=== PATIENT | female | born 1980 | race Caucasian/White ===

== ENCOUNTER 2016-11-08 00:17 | Emergency (ER) | payer OTHER ==
[~2016-11-08] VITALS: Ht 162.6 cm; Wt 63.5 kg
[~2016-11-08 00:17] MED LIST: ALPR1T PO; CIPR500T78 PO; CPR500T PO; DCS100C PO; FRS325T PO; HYDR-229 PO; HYDR-3720 PO; HYDR118S10 PO; IBP800T PO; IBUP800T26 PO; METR500T PO; MULT-305 PO; NAPR-243 PO; NITR-65 PO; ONDA4TAB8 PO; OXYC-109 PO; OXYC-12 PO; OXYC-272 PO; OXYC-465 PO; OXYC1TAB12 PO; PREN1TAB19 PO; SPRINTEC PO; TAMS0.4C98 PO
[2016-11-08] MEDS ORDERED: ESTR1TAB24 (00:32)
[2016-11-08] MEDS ORDERED: HYDR-3816 (00:32)
[2016-11-08] MEDS ORDERED: LACTATED RINGERS 1,000 ML IV ONE (00:36)
[2016-11-08] MEDS ORDERED: KETOROLAC 30 MG/ML VIAL IVP STA (00:36)
[2016-11-08 00:43] LABS: BILIRUBIN,URINE NEGATIVE (NEGATIVE); KETONES,URINE NEGATIVE (NEGATIVE); LEUKOCYTE ESTERASE ,URINE NEGATIVE (NEGATIVE); NITRITE,URINE NEGATIVE (NEGATIVE); PH,URINE 8 (5-9); PROTEIN,URINE NEGATIVE (NEGATIVE); UROBILINOGEN,URINE NORMAL (NORMAL)
[2016-11-08 00:51] LABS: SQUAMOUS EPITHELIAL CELL,UR RARE /HPF; WBC,URINE RARE /HPF
[2016-11-08 00:51] LABS: BASOPHILS % (AUTO) 0 % (0-10); EOSINOPHILS # (AUTO) 0.1 10^3/uL (0.0-0.3); EOSINOPHILS % (AUTO) 1 % (0-10); LYMPHOCYTES # (AUTO) 1.8 X 10^3 (1.0-4.0); LYMPHOCYTES % (AUTO) 34 % (12-44); MEAN CORPUSCULAR HEMOGLOBIN 31 PG (25-34); MEAN CORPUSCULAR HGB CONC 34 G/DL (32-36); MEAN CORPUSCULAR VOLUME 91 FL (80-99); MEAN PLATELET VOLUME 10.3 FL (7.4-10.4); MONOCYTES # (AUTO) 0.5 X 10^3 (0.0-1.0); MONOCYTES % (AUTO) 9 % (0-12); NEUTROPHILS % (AUTO) 56 % (42-75); PLATELET COUNT 245 10^3/uL (130-400); RED BLOOD COUNT 4.34 10^6/uL (4.35-5.85); WHITE BLOOD COUNT 5.3 10^3/uL (4.3-11.0)
[2016-11-08 01:10] LABS: ALANINE AMINOTRANSFERASE 12 U/L (0-55); ALBUMIN 4.4 GM/DL (3.2-4.5); AMYLASE 54 U/L (25-125); ANION GAP 13 MMOL/L (5-14); ASPARTATE AMINO TRANSFERASE 15 U/L (5-34); BILIRUBIN,TOTAL 0.4 MG/DL (0.1-1.0); BLOOD UREA NITROGEN 12 MG/DL (7-18); BUN/CREATININE RATIO 16; CALCIUM 9.3 MG/DL (8.5-10.1); CARBON DIOXIDE 19 MMOL/L (21-32); CHLORIDE 109 MMOL/L (98-107); CREATININE SERUM 0.73 MG/DL (0.60-1.30); GFR ESTIMATED > 60; GLUCOSE 110 MG/DL (70-105); LIPASE 32 U/L (8-78); POTASSIUM 4.4 MMOL/L (3.6-5.0); SODIUM 141 MMOL/L (135-145); TOTAL PROTEIN 7.2 GM/DL (6.4-8.2)
[2016-11-08] MEDS ORDERED: ONDANSETRON 4 MG/2 ML (SDV) Z0FRAN IVP ONE (01:30)
[2016-11-08] MEDS ORDERED: ONDA4TAB8 PO (02:06)
[2016-11-08] MEDS ORDERED: KETO10TA PO (02:06)
--- NOTE | 2016-11-08 02:07 | ED Abdominal Pain ---
General Chief Complaint: Abdominal/GI Problems Stated Complaint: ABD PAIN,RT SIDE,CAN'T URINATE Nursing Triage Note: c/o L sided abdomen pain and unable to urinate Sepsis Screen: No Definite Risk Source of Information: Patient History of Present Illness Time Seen By Provider: 00:32 Initial Comments PT ARRIVES VIA POV-DROVE SELF HERE C/O DIFFUSE LEFT SIDED ABDOMINAL PAIN AND FLANK PAIN SINCE WAKING AT 0500 THIS AM STATES SHE HAS BEEN UNABLE TO URINATE OR HAVE A BM TODAY VOIDED A SMALL AMOUNT AT 1800. DENIES HEMATURIA NO NAUSEA/VOMITING NO FEVER NO PAIN ON URINATION PT STATES SHE HAS A HISTORY OF KIDNEY STONES AND THIS FEELS THE SAME. PT STATES SHE IS "ALLOWED 2 HYDROCODONE PILLS A DAY" , AND GOES ON AT LENGTH ABOUT HOW SHE "HARDLY EVER USES THEM AND NEVER TAKES MORE THAN PRESCRIBED" --PT HAS FILLED RX'S FOR HYDROCODONE 7.5/325 FOR #60 ON 10/30/16 AND 10/02/16, AND PRIOR TO THAT SHE WAS GETTING RX'S FOR HYDROCODONE 10/325 #60 FILLED EVERY SINGLE MONTH. ALSO TAKES XANAX ON REGULAR BASIS AND FILLED RX FOR #60 ON . PT HAS ALSO HAD MULTIPLE RX'S FOR PHENERGAN WITH CODEINE SYRUP FROM ANOTHER PROVIDER A FEW MONTHS AGO. PT STATES SHE TOOK 1 HYDROCODONE THIS AM AND 1 THIS EVENING WITHOUT RELIEF. Allergies and Home Medications Allergies Coded Allergies: cephalexin (Verified Allergy, Unknown, 07/31/06) metoclopramide (Verified Allergy, Unknown, MAKES FEEL OUT OF HEAD, 09/23/06 ) penicillin G (Verified Allergy, Unknown, 07/31/06) Home Medications Alprazolam 1 Mg Tablet, 1 TAB PO TID PRN for ANXIETY, (Reported) Estradiol 1 Mg Tablet, (Reported) Hydrocodone/Acetaminophen 1 Each Tablet, (Reported) Ketorolac Tromethamine 10 Mg Tablet, 10 MG PO Q6H, #15 Prescribed by: KRISTA BAH on 11/08/16 0206 Ondansetron 4 Mg Tab.rapdis, 4 MG PO Q4H, #10 Prescribed by: KRISTA BAH on 11/08/16 0206 Review of Systems Constitutional: no symptoms reported, No chills, No diaphoresis, No fever Respiratory: No Symptoms Reported Gastrointestinal: See HPI, Abdominal Pain, Constipated, Nausea, Denies Vomiting Genitourinary: See HPI, Flank Pain Musculoskeletal: see HPI, back pain Skin: no symptoms reported Psychiatric/Neurological: No Symptoms Reported Endocrine: No Symptoms Reported Hematologic/Lymphatic: No Symptoms Reported Past [id number]-[id number]-Zskeoe Hx Patient Social History Alcohol Use: Denies Use Recreational Drug Use: No Smoking Status: Current Everyday Smoker (1/2 PPD) Type Used: Cigarettes Recent Foreign Travel: No Contact w/Someone Who Travel: No Recent Infectious Disease Expo: No Physical Abuse: No Sexual Abuse: No Immunizations Up To Date Tetanus Booster (TDap): More than 5yrs PED Vaccines UTD: Yes Surgeries History of Surgeries: Yes (LYSIS ENDOMETRIOSIS, KIDNEY STONES/BASKET RETRIEVAL ) Surgeries: Appendectomy, Section, Gallbladder, Hysterectomy, Oophorectomy, Renal Respiratory History of Respiratory Disorde: No Cardiovascular History of Cardiac Disorders: No Neurological History of Neurological Disord: No Reproductive System : No Hx Reproductive Disorders: Yes (ENDOMETRIOSIS) Sexually Transmitted Disease: No HIV/AIDS: No Female Reproductive Disorders: Endometriosis, Ovarian Cyst DRY HEAT CABINET ATTENDANT History: Hysterectomy Genitourinary History of Genitourinary Disor: Yes Genitourinary Disorders: Kidney Stones Gastrointestinal History of Gastrointestinal Di: No Musculoskeletal History of Musculoskeletal Dis: Yes Musculoskeletal Disorders: Degenerate Disk Disease, Chronic Back Pain Endocrine History of Endocrine Disorders: No HEENT Loss of Vision: Denies Hearing Impairment: Denies Cancer History of Cancer: No Psychosocial History of Psychiatric Problem: Yes Behavioral Health Disorders: Anxiety Suicide Risk Score: 0 Integumentary History of Skin or Integumenta: No Blood Transfusions History of Blood Disorders: No Adverse Reaction to a Blood Tr: No Family Medical History Family Medial History: Alcoholism PATERNAL GRANDPA ( AGE 54 YR) Arthritis 19 FATHER 19 MOTHER G8 BROTHER (GOUT) MATERNAL GRANDMA Cardiovascular disease MATERNAL GRANDMA Completed stroke PATERNAL GRANDMA (70 YR) FHx: suicide G8 BROTHER (SUICIDE AGE 21 YR) Hypertension 19 FATHER 19 MOTHER Osteoporosis PATERNAL GRANDMA Parkinson's disease 19 FATHER PATERNAL GRANDMA No Family History of: AIDS Abdominal aortic aneurysm Martin's disease Alzheimer's disease Aphasia Asthma Cancer of mouth Cataracts Colon cancer Congenital disease Congenital heart disease Coronary thrombosis Cystic fibrosis Deafness or hearing loss Dementia Diabetes mellitus Drug abuse Dysphasia Fibrocystic disease of breast Gastroenteritis Glaucoma Headache disorder Hypercholesterolemia Infertility Kidney disease Myocardial infarction Neoplasm Not obtainable due to adoption Prostate cancer Psychosocial problem Respiratory disorder Seizure disorder Severe allergy Thyroid disease Tuberculosis Visual disorder Physical Exam Vital Signs Capillary Refill : Less Than 3 Seconds General Appearance: WD/WN, no apparent distress, other (FULL/HEAVY MAKEUP AND HEAVY PERFUME. 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, no motor/sensory deficits, alert, normal mood/affect, oriented x 3 Skin: normal color, warm/dry, No rash, tattoos/piercings (TATTOOS) Progress/Results/Core Measures Results/Orders Lab Results Laboratory Tests Test 11/08/16 00:36 11/08/16 00:40 Range/Units Urine Color YELLOW Urine Clarity SLIGHTLY CLOUDY Urine pH 8 5-9 Urine Specific [place] 1.010 L 1.016-1.022 Urine Protein NEGATIVE NEGATIVE Urine Glucose (UA) NEGATIVE NEGATIVE Urine Ketones NEGATIVE NEGATIVE Urine Nitrite NEGATIVE NEGATIVE Urine Bilirubin NEGATIVE NEGATIVE Urine Urobilinogen NORMAL NORMAL MG/DL Urine Leukocyte Esterase NEGATIVE NEGATIVE Urine RBC (Auto) 5+ H NEGATIVE Urine RBC 50-100 H /HPF Urine WBC RARE /HPF Urine Squamous Epithelial Cells RARE /HPF Urine Crystals NONE /LPF Urine Bacteria NEGATIVE /HPF Urine Casts NONE /LPF Urine Mucus NEGATIVE /LPF Urine Culture Indicated NO Urine Opiates Screen POSITIVE H NEGATIVE Urine Oxycodone Screen NEGATIVE NEGATIVE Urine Methadone Screen NEGATIVE NEGATIVE Urine Propoxyphene Screen NEGATIVE NEGATIVE Urine Barbiturates Screen NEGATIVE NEGATIVE Ur Tricyclic Antidepressants Screen NEGATIVE NEGATIVE Urine Phencyclidine Screen NEGATIVE NEGATIVE Urine Amphetamines Screen NEGATIVE NEGATIVE Urine Methamphetamines Screen NEGATIVE NEGATIVE Urine Benzodiazepines Screen POSITIVE H NEGATIVE Urine Cocaine Screen NEGATIVE NEGATIVE Urine Cannabinoids Screen NEGATIVE NEGATIVE White Blood Count 5.3 4.3-11.0 10^3/uL Red Blood Count 4.34 L 4.35-5.85 10^6/uL Hemoglobin 13.4 11.5-16.0 G/DL Hematocrit 39 35-52 % Mean Corpuscular Volume 91 80-99 FL Mean Corpuscular Hemoglobin 31 25-34 PG Mean Corpuscular Hemoglobin Concent 34 32-36 G/DL Red Cell Distribution Width 12.0 10.0-14.5 % Platelet Count 245 130-400 10^3/uL Mean Platelet Volume 10.3 7.4-10.4 FL Neutrophils (%) (Auto) 56 42-75 % Lymphocytes (%) (Auto) 34 12-44 % Monocytes (%) (Auto) 9 0-12 % Eosinophils (%) (Auto) 1 0-10 % Basophils (%) (Auto) 0 0-10 % Neutrophils # (Auto) 3.0 1.8-7.8 X 10^3 Lymphocytes # (Auto) 1.8 1.0-4.0 X 10^3 Monocytes # (Auto) 0.5 0.0-1.0 X 10^3 Eosinophils # (Auto) 0.1 0.0-0.3 10^3/uL Basophils # (Auto) 0.0 0.0-0.1 10^3/uL Sodium Level 141 135-145 MMOL/L Potassium Level 4.4 3.6-5.0 MMOL/L Chloride Level 109 H 98-107 MMOL/L Carbon Dioxide Level 19 L 21-32 MMOL/L Anion Gap 13 5-14 MMOL/L Blood Urea Nitrogen 12 7-18 MG/DL Creatinine 0.73 0.60-1.30 MG/DL Estimat Glomerular Filtration Rate > 60 BUN/Creatinine Ratio 16 Glucose Level 110 H 70-105 MG/DL Calcium Level 9.3 8.5-10.1 MG/DL Total Bilirubin 0.4 0.1-1.0 MG/DL Aspartate Amino Transf (AST/SGOT) 15 5-34 U/L Alanine Aminotransferase (ALT/SGPT) 12 0-55 U/L Alkaline Phosphatase 48 40-136 U/L Total Protein 7.2 6.4-8.2 GM/DL Albumin 4.4 3.2-4.5 GM/DL Amylase Level 54 25-125 U/L Lipase 32 8-78 U/L My Orders Orders - KRISTA BAH DO Ct Abd/Pelvis Wo(Kidney Stone) (11/08/16 00:36) Amylase (11/08/16 00:36) Cbc With Automated Diff (11/08/16 00:36) Comprehensive Metabolic Panel (11/08/16 00:36) Lipase (11/08/16 00:36) Ua Culture If Indicated (11/08/16 00:36) Saline Lock/Iv-Start (11/08/16 00:36) Abdomen/Kub 1view (11/08/16 00:36) Saline Lock/Iv-Start (11/08/16 00:36) Lactated Ringers (Lr 1000 Ml Iv Solution (11/08/16 00:36) Ketorolac Injection (Toradol Injection) (11/08/16 00:36) Drug Screen Stat (Urine) (11/08/16 00:56) Ondansetron Injection (Zofran Injectio (11/08/16 01:30) Iv Push Rn Clinical Ed (11/08/16 ) Medications Given in ED Vital Signs/I&O Blood Pressure Mean: 105 Progress Note : Progress Note PT REPEATEDLY WANTING "SOMETHING STRONGER" 0145--PT SLEEPING SOUNDLY, SNORING. STATES ZOFRAN MADE HER SLEEPY. Diagnostic Imaging Comments ACUTE ABDOMEN XRAYS--NO ACUTE PROCESS, PENDING RADIOLOGIST REVIEW CT ABDOMEN/PELVIS--NO ACUTE PROCESS, PER [facility] VIA FAX @ [id number] Reviewed: Reviewed by Me Departure Impression Impression: Primary Impression: Left sided abdominal pain Additional Impression: Microscopic hematuria Disposition: HOME, SELF-CARE Condition: Improved Departure-Patient Inst. Referrals: PIETRO TSAI MD (PCP/Family) Primary Care Physician Patient Instructions: Acute Abdomen (Belly Pain), Adult (DC), Blood in the Urine (Hematuria), Adult (DC) Add. Discharge Instructions: CONTINUE YOUR REGULAR MEDICATIONS PRESCRIBED FOLLOW UP WITH DR TSAI ON FRIDAY FOR FURTHER CARE RETURN TO ER IF WORSE All discharge instructions reviewed with patient and/or family. Voiced understanding. Scripts Ondansetron (Zofran Odt) 4 Mg Tab.rapdis 4 MG PO Q4H for Nausea/Vomiting, #10 TAB Prov: KRISTA BAH DO 11/08/16 Ketorolac Tromethamine (Ketorolac Tromethamine) 10 Mg Tablet 10 MG PO Q6H for Pain, #15 TAB Prov: NIURKA,KRISTA K DO 11/08/16 KRISTA BAH DO Nov 08, 2016 02:07
[2016-11-08 02:14] VITALS: BP 130/84
--- NOTE | 2016-11-08 07:23 | Diagnostic Imaging Report ---
INDICATION: Left abdominal flank pain. History of renal stones, hysterectomy, cholecystectomy and appendectomy Comparison study: Abdominal series from 01/12/15. Findings: Surgical clips are again seen in the region of the gallbladder fossa. The liver appears a little prominent in size but unchanged. Bowel gas pattern appears normal. Possible mild constipation. Small osteophyte is present in the right hip. IMPRESSION: 1. The liver again appears to be mildly prominent. 2. Questionable mild constipation. Dictated by: Dictated on workstation # [id number]
--- NOTE | 2016-11-08 07:32 | Diagnostic Imaging Report ---
PROCEDURE: CT urinary tract, rule out kidney stone. TECHNIQUE: Multiple contiguous axial images were obtained through the abdomen and pelvis without the use of intravenous contrast. INDICATION: Left flank and abdominal pain, previous kidney stones, hysterectomy, cholecystectomy, appendectomy. COMPARISON STUDY: CT scan dated 09/12/2015. FINDINGS: The lung bases are clear. Ill-defined low density area posteriorly in the right lobe liver on axial image 37, unchanged. The gallbladder is absent. The spleen, pancreas, adrenal glands and left kidney appear normal. There are is a 7.7 mm calcification in the lower pole of the left kidney anteriorly which was present previously. This has slightly increased. No hydronephrosis or inflammation is seen. No ascites, free air or abnormal adenopathy is present. The urinary bladder appears normal. No hernias are present. There are a few colonic diverticula without inflammation. IMPRESSION: 1. The calculi in the lower pole of the right kidney is slightly increased now measures 7.7 mm. No inflammation or hydronephrosis present. 2. Mild diverticulosis. 3. Stable ill-defined low density area in the right lobe of the liver. Dictated by: Dictated on workstation # [id number]
== END 2016-11-08 02:14 | disposition home or self-care (01) ==
LOC: EDUNIT# 00:17 → ER 00:20
DX: R10.84 Generalized abdominal pain (principal); R31.21 Asymptomatic microscopic hematuria; F41.9 Anxiety disorder, unspecified; F17.210 Nicotine dependence, cigarettes, uncomplicated; Z82.49 Family history of ischemic heart disease and other diseases of the circulatory system; Z87.442 Personal history of urinary calculi; Z90.710 Acquired absence of both cervix and uterus; Z90.49 Acquired absence of other specified parts of digestive tract; Z87.448 Personal history of other diseases of urinary system
CPT/HCPCS: 36415; 74000; 74176; 80053; 80306; 81000; 82150; 83690; 85025; 96361; 96374; 96375

== ENCOUNTER 2017-11-24 14:03 | Emergency (ER) | payer OTHER ==
[~2017-11-24] VITALS: Ht 165.1 cm; Wt 63.5 kg
[~2017-11-24 14:03] MED LIST changes: +ESTR1TAB24; +HYDR-34; +KETO10TA PO
--- OUTSIDE RECORDS SUMMARY | 2017-11-24 14:36 | XMS REPORT | Continuity of Care Document ---
Author Author [facility] Organization [facility] Address Unknown Phone Unavailable Allergies Active Description Code Type Severity Reaction Onset Reported/Identified Relationship to Patient Clinical Status Yes cephalexin [id number] Drug Allergy Unknown N/A 07/31/2006 Yes penicillin G [id number] Drug Allergy Unknown N/A 07/31/2006 Yes metoclopramide [id number] Drug Allergy Unknown MAKES FEEL OUT 09/23/2006 Medications There is no data. Problems Date Dx Coded Attending Type Code Diagnosis Diagnosed By 04/11/2011 Ot 614.2 SALPINGO- OOPHORITIS NOS 04/11/2011 Ot 617.1 OVARIAN ENDOMETRIOSIS 04/11/2011 Ot 620.0 FOLLICULAR CYST OF OVARY 04/11/2011 Ot 625.9 FEM GENITAL SYMPTOMS NOS 10/21/2011 Ot 592.0 CALCULUS OF KIDNEY 10/21/2011 Ot 599.0 URIN TRACT INFECTION NOS 10/21/2011 Ot 789.00 ABDOMINAL PAIN, UNSPECIFIED SITE 07/04/2012 TODD PHILIP, MICHELLE Ordoñez Ot 789.09 ABDOMINAL PAIN, OTHER SPECIFIED SITE 09/22/2012 LUIS MANUEL PHILIP, SUSANNA Rodríguez Ot 789.00 ABDOMINAL PAIN, UNSPECIFIED SITE 11/11/2012 LEANA PHILIP, KARMA Tarango Ot 617.9 ENDOMETRIOSIS NOS 08/25/2013 LUIS MANUEL PHILIP, SUSANNA Rodríguez Ot 592.0 CALCULUS OF KIDNEY 06/10/2014 Ot 796.5 06/28/2014 LEANA PHILIP, KARMA Tarango Ot 642.23 06/28/2014 KARMA DUEÑAS MD, Ot 642.23 06/28/2014 KARMA DUEÑAS MD Ot 642.23 06/28/2014 KARMA DUEÑAS MD Ot 642.23 06/30/2014 LEANA PHILIP, KARMA Tarango Ot 285.9 ANEMIA NOS 06/30/2014 KARMA DUEÑAS MD Ot 642.51 SEVERE PREECLAMP-DELIVER 06/30/2014 KARMA DUEÑAS MD Ot 644.21 EARLY ONSET DELIVERY-DEL 06/30/2014 KARMA DUEÑAS MD Ot 648.21 ANEMIA-DELIVERED 06/30/2014 KARMA DUEÑAS MD Ot 654.21 PREV DELIVRY W/ OR W/O MENT ANT 06/30/2014 KARMA DUEÑAS MD, Ot 657.01 POLYHYDRAMNIOS,DEL W OR W/O MENTN ANTEPA 06/30/2014 KARMA DUEÑAS MD Ot 663.31 CORD ENTANGLE NEC-DELIV 06/30/2014 KARMA DUEÑAS MD Ot V06.1 [id number], COMBINED [ 06/30/2014 KARMA DUEÑAS MD Ot V27.0 DELIVER-SINGLE LIVEBORN 07/04/2014 KARMA DUEÑAS MD Ot 796.5 07/29/2014 KARMA DUEÑAS MD Ot 642.43 07/29/2014 KARMA DUEÑAS MD Ot 796.5 08/06/2014 Ot 796.5 08/06/2014 KARMA DUEÑAS MD Ot 796.5 08/06/2014 KARMA DUEÑAS MD Ot 642.43 08/06/2014 KARMA DUEÑAS MD Ot 796.5 08/10/2014 Ot 620.2 08/10/2014 Ot 620.2 08/10/2014 Ot V72.63 08/10/2014 Ot V74.8 08/10/2014 Ot 722.52 08/10/2014 RAFAT PHILIP, JOAQUIN Hines Ot 599.70 08/10/2014 RAFAT PHILIP, JOAQUIN Hines Ot 617.9 08/10/2014 RAFAT PHILIP, JOAQUIN Hines Ot 625.9 08/10/2014 KARMA DUEÑAS MD Ot 285.9 08/10/2014 KARMA DUEÑAS MD Ot 617.9 08/10/2014 KARMA DUEÑAS MD Ot 625.9 08/10/2014 SINGH DUEÑAS MDNIS G Ot V72.63 08/10/2014 LEANA PHILIP, KARMA Tarango Ot V74.8 08/10/2014 Ot 796.5 08/10/2014 LEANA PHILIP, KARMA Tarango Ot 796.5 08/10/2014 LEANA PHILIP, KARMA Tarango Ot 642.23 08/10/2014 LEANA PHILIP, KARMA Tarango Ot 642.43 08/10/2014 LEANA PHILIP, KARMA Tarango Ot 796.5 08/10/2014 LEANA PHILIP, KARMA Tarango Ot 642.63 08/10/2014 LEANA PHILIP, KARMA Tarango Ot 285.9 08/10/2014 LEANA PHILIP, KARMA Tarango Ot 617.9 08/10/2014 LEANA PHILIP, KARMA Tarango Ot V72.84 08/11/2014 LEANA PHILIP, KARMA Tarango Ot 614.6 FEM PELVIC PERITON ADH-POST-OP/INF 08/11/2014 LEANA PHILIP, KARMA Tarango Ot 617.9 08/11/2014 LEANA PHILIP, KARMA Tarango Ot 620.2 OVARIAN CYST NEC/NOS 08/17/2014 LEANA PHILIP, KARMA Tarango Ot 642.23 08/24/2014 LEANA PHILIP, KARMA Tarango Ot 642.63 01/12/2015 KRISTA BAH DO Ot F17.210 NICOTINE DEPENDENCE, CIGARETTES, UNCOMPL 01/12/2015 KRISTA BAH DO Ot K76.9 LIVER DISEASE, UNSPECIFIED 01/12/2015 KRISTA BAH DO Ot N20.0 CALCULUS OF KIDNEY 01/12/2015 KRISTA BAH DO Ot R10.30 LOWER ABDOMINAL PAIN, UNSPECIFIED 01/12/2015 KRISTA BAH DO Ot R31.2 OTHER MICROSCOPIC HEMATURIA 01/12/2015 Ot 620.2 01/12/2015 Ot 620.2 01/12/2015 Ot V72.63 01/12/2015 Ot V74.8 01/12/2015 Ot 722.52 01/12/2015 RAFAT PHILIP, JOAQUIN Hines Ot 599.70 01/12/2015 RAFAT PHILIP, JOAQUIN Hines Ot 617.9 01/12/2015 RAFAT PHILIP, JOAQUIN Hines Ot 625.9 01/12/2015 LEANA PHILIP, KARMA Tarango Ot 285.9 01/12/2015 LEANA PHILIP, KARMA Tarango Ot 617.9 01/12/2015 LEANA PHILIP, KARMA Tarango Ot 625.9 01/12/2015 LEANA PHILIP, KARMA Tarango Ot V72.63 01/12/2015 LEANA PHILIP, KARMA Tarango Ot V74.8 01/12/2015 Ot 796.5 01/12/2015 LEANA MD, KARMA Tarango Ot 796.5 01/12/2015 LEANA PHILIP, KARMA Tarango Ot 642.23 01/12/2015 LEANA PHILIP, KARMA Tarango Ot 642.43 01/12/2015 LEANA PHILIP, KARMA Tarango Ot 796.5 01/12/2015 LEANA PHILIP, KARMA Tarango Ot 642.63 01/12/2015 LEANA PHILIP, KARMA Tarango Ot 285.9 01/12/2015 LEANA MD, KARMA Tarango Ot 617.9 01/12/2015 LEANA PHILIP, KARMA Tarango Ot V72.84 02/07/2015 Ot 620.2 02/07/2015 Ot 620.2 02/07/2015 Ot V72.63 02/07/2015 Ot V74.8 02/07/2015 Ot 722.52 02/07/2015 RAFAT PHILIP, JOAQUIN Hines Ot 599.70 02/07/2015 RAFAT PHILIP, JOAQUIN Hines Ot 617.9 02/07/2015 RAFAT PHILIP, JOAQUIN Hines Ot 625.9 02/07/2015 LEANA PHILIP, KARMA Tarango Ot 285.9 02/07/2015 LEANA PHILIP, KARMA Tarango Ot 617.9 02/07/2015 LEANA PHILIP, KARMA Tarango Ot 625.9 02/07/2015 LEANA PHILIP, KARMA Tarango Ot V72.63 02/07/2015 LEANA PHILIP, KARMA Tarango Ot V74.8 02/07/2015 Ot 796.5 02/07/2015 LEANA PHILIP, KARMA Tarango Ot 796.5 02/07/2015 LEANA PHILIP, KARMA Tarango Ot 642.23 02/07/2015 LEANA PHILIP, KARMA Tarango Ot 642.43 02/07/2015 LEANA PHILIP, KARMA G Ot 796.5 02/07/2015 LEANA PHILIP, KARMA Tarango Ot 642.63 02/07/2015 LEANA PHILIP, KARMA G Ot 285.9 02/07/2015 LEANA PHILIP, KARMA G Ot 617.9 02/07/2015 LEANA MD, KARMA Tarango Ot V72.84 02/07/2015 RAFAT PHILIP, [facility] Ot R16.0 02/23/2015 RAFAT PHILIP, [facility] Ot R16.0 03/20/2015 RAFAT PHILIP, [facility] Ot R16.0 03/20/2015 RAFAT PHILIP, [facility] Ot R16.0 04/04/2015 RAFAT PHILIP, [facility] Ot R16.0 04/07/2015 Ot 620.2 04/07/2015 Ot 620.2 04/07/2015 Ot V72.63 04/07/2015 Ot V74.8 04/07/2015 Ot 722.52 04/07/2015 RAFAT PHILIP, [facility] Ot 599.70 04/07/2015 RAFAT PHILIP, [facility] Ot 617.9 04/07/2015 RAFAT PHILIP, [facility] Ot 625.9 04/07/2015 LEANA PHILIP, KARMA G Ot 285.9 04/07/2015 LEANA PHILIP, KARMA G Ot 617.9 04/07/2015 LEANA PHILIP, KARMA G Ot 625.9 04/07/2015 LEANA PHILIP, KARMA Tarango Ot V72.63 04/07/2015 LEANA PHILIP, KARMA Tarango Ot V74.8 04/07/2015 Ot 796.5 04/07/2015 LEANA PHILIP, KARMA Tarango Ot 796.5 04/07/2015 LEANA PHILIP, KARMA Tarango Ot 642.23 04/07/2015 LEANA PHILIP, KARMA Tarango Ot 642.43 04/07/2015 LEANA PHILIP, KARMA Tarango Ot 796.5 04/07/2015 KARMA DUEÑAS MD Ot 642.63 04/07/2015 KARMA DUEÑAS MD Ot 285.9 04/07/2015 KARMA DUEÑAS MD Ot 617.9 04/07/2015 KARMA DUEÑAS MD Ot V72.84 04/07/2015 RAFAT PHILIP, JOAQUIN Hines Ot R16.0 04/07/2015 JOAQUIN DOUGLASS MD Ot R16.0 09/12/2015 MELISSA CENTENO LINE TESTER Ot F17.210 NICOTINE DEPENDENCE, CIGARETTES, UNCOMPL 09/12/2015 MELISSA CENTENO LINE TESTER Ot N20.0 CALCULUS OF KIDNEY 09/12/2015 MELISSA CENTENO LINE TESTER Ot R10.31 RIGHT LOWER QUADRANT PAIN 09/12/2015 MELISSA CENTENO LINE TESTER Ot R31.2 OTHER MICROSCOPIC HEMATURIA 09/12/2015 Ot 620.2 OVARIAN CYST NEC/NOS 09/12/2015 Ot 620.2 OVARIAN CYST NEC/NOS 09/12/2015 Ot V72.63 PRE- PROCEDURAL LABORATORY EXAMINATION 09/12/2015 Ot V74.8 SCREEN- BACTERIAL DIS NEC 09/12/2015 Ot 722.52 LUMB/ LUMBOSAC DISC DEGEN 09/12/2015 RAFAT PHILIP, JOAQUIN Hines Ot 599.70 HEMATURIA, UNSPECIFIED 09/12/2015 RAFAT PHILIP, JOAQUIN Hines Ot 617.9 ENDOMETRIOSIS NOS 09/12/2015 JOAQUIN DOUGLASS MD Ot 625.9 FEM GENITAL SYMPTOMS NOS 09/12/2015 KARMA DUEÑAS MD Ot 285.9 ANEMIA NOS 09/12/2015 KARMA DUEÑAS MD Ot 617.9 ENDOMETRIOSIS NOS 09/12/2015 KARMA DUEÑAS MD Ot 625.9 FEM GENITAL SYMPTOMS NOS 09/12/2015 KARMA DUEÑAS MD Ot V72.63 PRE-PROCEDURAL LABORATORY EXAMINATION 09/12/2015 KARMA DUEÑAS MD Ot V74.8 SCREEN-BACTERIAL DIS NEC 09/12/2015 Ot 796.5 ABN SCREENING 09/12/2015 KARMA DUEÑAS MD Ot 796.5 ABN SCREENING 09/12/2015 KARMA DUEÑAS MD Ot 642.23 OLD HYPERTEN NEC-ANTEPAR 09/12/2015 KARMA DUEÑAS MD Ot 642.43 MILD/NOS PREECLAMP-ANTEP 09/12/2015 KARMA DUEÑAS MD Ot 796.5 ABN SCREENING 09/12/2015 KARMA DUEÑAS MD Ot 642.63 ECLAMPSIA-ANTEPARTUM 09/12/2015 KARMA DUEÑAS MD Ot 285.9 ANEMIA NOS 09/12/2015 KARMA DUEÑAS MD Ot 617.9 ENDOMETRIOSIS NOS 09/12/2015 KARMA DUEÑAS MD Ot V72.84 EXAM PRE-OPERATIVE NOS 09/12/2015 RAFAT PHILIP, JOAQUIN Hines Ot R16.0 HEPATOMEGALY, NOT ELSEWHERE CLASSIFIED 09/14/2015 MELISSA CENTENO APRN Ot F17.210 NICOTINE DEPENDENCE, CIGARETTES, UNCOMPL 09/14/2015 MELISSA CENTENO APRN Ot N20.0 CALCULUS OF KIDNEY 09/14/2015 MELISSA CENTENO APRN Ot R10.31 RIGHT LOWER QUADRANT PAIN 09/14/2015 MELISSA CENTENO LINE TESTER Ot R31.2 OTHER MICROSCOPIC HEMATURIA 03/08/2016 Ot 620.2 OVARIAN CYST NEC/NOS 03/08/2016 Ot 620.2 OVARIAN CYST NEC/NOS 03/08/2016 Ot V72.63 PRE- PROCEDURAL LABORATORY EXAMINATION 03/08/2016 Ot V74.8 SCREEN- BACTERIAL DIS NEC 03/08/2016 Ot 722.52 LUMB/ LUMBOSAC DISC DEGEN 03/08/2016 RAFAT PHILIP, JOAQUIN Hines Ot 599.70 HEMATURIA, UNSPECIFIED 03/08/2016 RAFAT PHILIP, JOAQUIN Hines Ot 617.9 ENDOMETRIOSIS NOS 03/08/2016 JOAQUIN DOUGLASS MD Ot 625.9 FEM GENITAL SYMPTOMS NOS 03/08/2016 KARMA DUEÑAS MD Ot 285.9 ANEMIA NOS 03/08/2016 KARMA DUEÑAS MD Ot 617.9 ENDOMETRIOSIS NOS 03/08/2016 KARMA DUEÑAS MD Ot 625.9 FEM GENITAL SYMPTOMS NOS 03/08/2016 KARMA DUEÑAS MD Ot V72.63 PRE-PROCEDURAL LABORATORY EXAMINATION 03/08/2016 KARMA DUEÑAS MD Ot V74.8 SCREEN-BACTERIAL DIS NEC 03/08/2016 Ot 796.5 ABN SCREENING 03/08/2016 KARMA DUEÑAS MD Ot 796.5 ABN SCREENING 03/08/2016 KARMA DUEÑAS MD Ot 642.23 OLD HYPERTEN NEC-ANTEPAR 03/08/2016 KARMA DUEÑAS MD Ot 642.43 MILD/NOS PREECLAMP-ANTEP 03/08/2016 KARMA DUEÑAS MD Ot 796.5 ABN SCREENING 03/08/2016 KARMA DUEÑAS MD Ot 642.63 ECLAMPSIA-ANTEPARTUM 03/08/2016 KARMA DUEÑAS MD Ot 285.9 ANEMIA NOS 03/08/2016 KARMA DUEÑAS MD Ot 617.9 ENDOMETRIOSIS NOS 03/08/2016 KARMA DUEÑAS MD Ot V72.84 EXAM PRE-OPERATIVE NOS 03/08/2016 RAFAT PHILIP, JOAQUIN Hines Ot R16.0 HEPATOMEGALY, NOT ELSEWHERE CLASSIFIED 11/08/2016 Ot 722.52 LUMB/ LUMBOSAC DISC DEGEN 11/08/2016 RAFAT PHILIP, JOAQUIN Hines Ot 599.70 HEMATURIA, UNSPECIFIED 11/08/2016 RAFAT PHILIP, JOAQUIN Hines Ot 617.9 ENDOMETRIOSIS NOS 11/08/2016 RAFAT PHILIP, JOAQUIN Hines Ot 625.9 FEM GENITAL SYMPTOMS NOS 11/08/2016 KARMA DUEÑAS MD Ot 285.9 ANEMIA NOS 11/08/2016 KARMA DUEÑAS MD Ot 617.9 ENDOMETRIOSIS NOS 11/08/2016 KARMA DUEÑAS MD Ot 625.9 FEM GENITAL SYMPTOMS NOS 11/08/2016 KARMA DUEÑAS MD Ot V72.63 PRE-PROCEDURAL LABORATORY EXAMINATION 11/08/2016 KARMA DUEÑAS MD Ot V74.8 SCREEN-BACTERIAL DIS NEC 11/08/2016 Ot 796.5 ABN SCREENING 11/08/2016 KARMA DUEÑAS MD Ot 796.5 ABN SCREENING 11/08/2016 KARMA DUEÑAS MD Ot 642.23 OLD HYPERTEN NEC-ANTEPAR 11/08/2016 KARMA DUEÑAS MD Ot 642.43 MILD/NOS PREECLAMP-ANTEP 11/08/2016 KARMA DUEÑAS MD Ot 796.5 ABN SCREENING 11/08/2016 KARMA DUEÑAS MD Ot 642.63 ECLAMPSIA-ANTEPARTUM 11/08/2016 KARMA DUEÑAS MD Ot 285.9 ANEMIA NOS 11/08/2016 KARMA DUEÑAS MD Ot 617.9 ENDOMETRIOSIS NOS 11/08/2016 KARMA DUEÑAS MD Ot V72.84 EXAM PRE-OPERATIVE NOS 11/08/2016 RAFAT PHILIP, JOAQUIN Hines Ot R16.0 HEPATOMEGALY, NOT ELSEWHERE CLASSIFIED 11/08/2016 Ot 722.52 LUMB/ LUMBOSAC DISC DEGEN 11/08/2016 RAFAT PHILIP, JOAQUIN Hines Ot 599.70 HEMATURIA, UNSPECIFIED 11/08/2016 RAFAT PHILIP, JOAQUIN Hines Ot 617.9 ENDOMETRIOSIS NOS 11/08/2016 RAFAT PHILIP, JOAQUIN Hines Ot 625.9 FEM GENITAL SYMPTOMS NOS 11/08/2016 KARMA DUEÑAS MD Ot 285.9 ANEMIA NOS 11/08/2016 KARMA DUEÑAS MD Ot 617.9 ENDOMETRIOSIS NOS 11/08/2016 KARMA DUEÑSA MD Ot 625.9 FEM GENITAL SYMPTOMS NOS 11/08/2016 KARMA DUEÑAS MD Ot V72.63 PRE-PROCEDURAL LABORATORY EXAMINATION 11/08/2016 KARMA DUEÑAS MD Ot V74.8 SCREEN-BACTERIAL DIS NEC 11/08/2016 Ot 796.5 ABN SCREENING 11/08/2016 KARMA DUEÑAS MD Ot 796.5 ABN SCREENING 11/08/2016 KARMA DUEÑAS MD Ot 642.23 OLD HYPERTEN NEC-ANTEPAR 11/08/2016 KARMA DUEÑAS MD Ot 642.43 MILD/NOS PREECLAMP-ANTEP 11/08/2016 KARAM DUEÑAS MD Ot 796.5 ABN SCREENING 11/08/2016 KARMA DUEÑAS MD Ot 642.63 ECLAMPSIA-ANTEPARTUM 11/08/2016 KARMA DUEÑAS MD Ot 285.9 ANEMIA NOS 11/08/2016 KARMA DUEÑAS MD Ot 617.9 ENDOMETRIOSIS NOS 11/08/2016 LEANA PHILIP, KARMA Tarango Ot V72.84 EXAM PRE-OPERATIVE NOS 11/08/2016 RAFAT PHILIP, JOAQUIN Hines Ot R16.0 HEPATOMEGALY, NOT ELSEWHERE CLASSIFIED 11/08/2016 JESSICA BAH DOA K Ot F17.210 NICOTINE DEPENDENCE, CIGARETTES, UNCOMPL 11/08/2016 NIURKA KRISTA K Ot F41.9 ANXIETY DISORDER, UNSPECIFIED 11/08/2016 NIURKA DO KRISTA K Ot R10.84 GENERALIZED ABDOMINAL PAIN 11/08/2016 NIURKA DO KRISTA K Ot R31.21 ASYMPTOMATIC MICROSCOPIC HEMATURIA 11/08/2016 NIURKA DO KRISTA K Ot Z82.49 FAMILY HX OF ISCHEM HEART DIS AND OTH DI 11/08/2016 NIURKA DO KRISTA K Ot Z87.442 PERSONAL HISTORY OF URINARY CALCULI 11/08/2016 NIURKA KRISTA K Ot Z87.448 PERSONAL HISTORY OF OTHER DISEASES OF UR 11/08/2016 NIURKA DO KRISTA K Ot Z90.49 ACQUIRED ABSENCE OF OTHER SPECIFIED PART 11/08/2016 NIURKA DO, KRISTA K Ot Z90.710 ACQUIRED ABSENCE OF BOTH CERVIX AND UTER 11/11/2016 NIURKA DO, KRISTA K Ot F17.210 NICOTINE DEPENDENCE, CIGARETTES, UNCOMPL 11/11/2016 NIURKA KRISTA Ordoñez Ot F41.9 ANXIETY DISORDER, UNSPECIFIED 11/11/2016 NIURKA KRISTA K Ot R10.84 GENERALIZED ABDOMINAL PAIN 11/11/2016 NIURKA DO KRISTA K Ot R31.21 ASYMPTOMATIC MICROSCOPIC HEMATURIA 11/11/2016 NIURKA DO KRISTA K Ot Z82.49 FAMILY HX OF ISCHEM HEART DIS AND OTH DI 11/11/2016 NIURKA DO KRISTA K Ot Z87.442 PERSONAL HISTORY OF URINARY CALCULI 11/11/2016 NIURKA DO KRISTA K Ot Z87.448 PERSONAL HISTORY OF OTHER DISEASES OF UR 11/11/2016 NIURKA DO KRISTA K Ot Z90.49 ACQUIRED ABSENCE OF OTHER SPECIFIED PART 11/11/2016 NIURKA DO, KRISTA K Ot Z90.710 ACQUIRED ABSENCE OF BOTH CERVIX AND UTER 11/12/2016 NIURKA DO KRISTA K Ot F17.210 NICOTINE DEPENDENCE, CIGARETTES, UNCOMPL 11/12/2016 NIURKA DO KRISTA Ordoñez Ot F41.9 ANXIETY DISORDER, UNSPECIFIED 11/12/2016 NIURKA ZUNIGA KRISTA Ordoñez Ot R10.84 GENERALIZED ABDOMINAL PAIN 11/12/2016 NIURKA KRISTA Ordoñez Ot R31.21 ASYMPTOMATIC MICROSCOPIC HEMATURIA 11/12/2016 NIURKA KRISTA Ordoñez Ot Z82.49 FAMILY HX OF ISCHEM HEART DIS AND OTH DI 11/12/2016 NIURKA KRISTA Ordoñez Ot Z87.442 PERSONAL HISTORY OF URINARY CALCULI 11/12/2016 NIURKA KRISTA Ordoñez Ot Z87.448 PERSONAL HISTORY OF OTHER DISEASES OF UR 11/12/2016 NIURKA KRISTA K Ot Z90.49 ACQUIRED ABSENCE OF OTHER SPECIFIED PART 11/12/2016 NIURKA KRISTA K Ot Z90.710 ACQUIRED ABSENCE OF BOTH CERVIX AND UTER 11/13/2016 GRYGLA KRISTA Ordoñez Ot F17.210 NICOTINE DEPENDENCE, CIGARETTES, UNCOMPL 11/13/2016 NIURKA KRISTA Ordoñez Ot F41.9 ANXIETY DISORDER, UNSPECIFIED 11/13/2016 NIURKA KRISTA Ordoñez Ot R10.84 GENERALIZED ABDOMINAL PAIN 11/13/2016 NIURKA KRISTA Ordoñez Ot R31.21 ASYMPTOMATIC MICROSCOPIC HEMATURIA 11/13/2016 NIURKA KRISTA Ordoñez Ot Z82.49 FAMILY HX OF ISCHEM HEART DIS AND OTH DI 11/13/2016 NIURKA ZUNIGA KRISTA Ordoñez Ot Z87.442 PERSONAL HISTORY OF URINARY CALCULI 11/13/2016 NIURKA KRISTA Ordoñez Ot Z87.448 PERSONAL HISTORY OF OTHER DISEASES OF UR 11/13/2016 NIURKA KRISTA Ordoñez Ot Z90.49 ACQUIRED ABSENCE OF OTHER SPECIFIED PART 11/13/2016 GRYGLA KRISTA K Ot Z90.710 ACQUIRED ABSENCE OF BOTH CERVIX AND UTER Procedures Code Description Performed By Performed On 72.9 INSTRUMENT DELIVERY NOS 06/28/2014 74.1 LOW CERVICAL 06/28/2014 Results Test Result Range Complete urinalysis with reflex to culture - 11/08/16 00:36 Urine color determination YELLOW NRG Urine clarity determination SLIGHTLY CLOUDY NRG Urine pH measurement by test strip 8 5-9 Specific gravity of urine by test strip 1.010 1.016- 1.022 Urine protein assay by test strip, semi-quantitative NEGATIVE NEGATIVE Urine glucose detection by automated test strip NEGATIVE NEGATIVE Erythrocytes detection in urine sediment by light microscopy 5+ NEGATIVE Urine ketones detection by automated test strip NEGATIVE NEGATIVE Urine nitrite detection by test strip NEGATIVE NEGATIVE Urine total bilirubin detection by test strip NEGATIVE NEGATIVE Urine urobilinogen measurement by automated test strip (mass/volume) NORMAL NORMAL Urine leukocyte esterase detection by dipstick NEGATIVE NEGATIVE Automated urine sediment erythrocyte count by microscopy (number/high power field) [HPF] NRG Automated urine sediment leukocyte count by microscopy (number/high power field ) RARE NRG Bacteria detection in urine sediment by light microscopy NEGATIVE NRG Squamous epithelial cells detection in urine sediment by light microscopy RARE NRG Crystals detection in urine sediment by light microscopy NONE NRG Casts detection in urine sediment by light microscopy NONE NRG Mucus detection in urine sediment by light microscopy NEGATIVE NRG Complete urinalysis with reflex to culture NO NRG Urine drug screening test - 11/08/16 00:36 Urine phencyclidine detection by screening method NEGATIVE NEGATIVE Urine benzodiazepines detection by screening method POSITIVE NEGATIVE Urine cocaine detection NEGATIVE NEGATIVE Urine amphetamines detection by screening method NEGATIVE NEGATIVE Urine methamphetamine detection by screening method NEGATIVE NEGATIVE Urine cannabinoids detection by screening method NEGATIVE NEGATIVE Urine opiates detection by screening method POSITIVE NEGATIVE Urine barbiturates detection NEGATIVE NEGATIVE Screening urine tricyclic antidepressants detection NEGATIVE NEGATIVE Urine methadone detection by screening method NEGATIVE NEGATIVE Urine oxycodone detection NEGATIVE NEGATIVE Urine propoxyphene detection NEGATIVE NEGATIVE Complete blood count (CBC) with automated white blood cell (WBC) differential - 11/08/16 00:40 Blood leukocytes automated count (number/volume) 5.3 10*3/uL 4.3-11.0 Blood erythrocytes automated count (number/volume) 4.34 10*6/uL 4.35-5.85 Venous blood hemoglobin measurement (mass/volume) 13.4 g/dL 11.5-16.0 Blood hematocrit (volume fraction) 39 % 35-52 Automated erythrocyte mean corpuscular volume 91 [foz_us] 80-99 Automated erythrocyte mean corpuscular hemoglobin (mass per erythrocyte) 31 pg 25-34 Automated erythrocyte mean corpuscular hemoglobin concentration measurement ( mass/volume) 34 g/dL 32-36 Automated erythrocyte distribution width ratio 12.0 % 10.0-14.5 Automated blood platelet count (count/volume) 245 10*3/uL 130-400 Automated blood platelet mean volume measurement 10.3 [foz_us] 7.4-10.4 Automated blood neutrophils/100 leukocytes 56 % 42-75 Automated blood lymphocytes/100 leukocytes 34 % 12-44 Blood monocytes/100 leukocytes 9 % 0-12 Automated blood eosinophils/100 leukocytes 1 % 0-10 Automated blood basophils/100 leukocytes 0 % 0-10 Blood neutrophils automated count (number/volume) 3.0 10*3 1.8-7.8 Blood lymphocytes automated count (number/volume) 1.8 10*3 1.0-4.0 Blood monocytes automated count (number/volume) 0.5 10*3 0.0-1.0 Automated eosinophil count 0.1 10*3/uL 0.0-0.3 Automated blood basophil count (count/volume) 0.0 10*3/uL 0.0-0.1 Comprehensive metabolic panel - 11/08/16 00:40 Serum or plasma sodium measurement (moles/volume) 141 mmol/L 135-145 Serum or plasma potassium measurement (moles/volume) 4.4 mmol/L 3.6-5.0 Serum or plasma chloride measurement (moles/volume) 109 mmol/L 98-107 Carbon dioxide 19 mmol/L 21-32 Serum or plasma anion gap determination (moles/volume) 13 mmol/L 5-14 Serum or plasma urea nitrogen measurement (mass/volume) 12 mg/dL 7-18 Serum or plasma creatinine measurement (mass/volume) 0.73 mg/dL 0.60-1.30 Serum or plasma urea nitrogen/creatinine mass ratio 16 NRG Serum or plasma creatinine measurement with calculation of estimated glomerular filtration rate > NRG Serum or plasma glucose measurement (mass/volume) 110 mg/dL 70-105 Serum or plasma calcium measurement (mass/volume) 9.3 mg/dL 8.5-10.1 Serum or plasma total bilirubin measurement (mass/volume) 0.4 mg/dL 0.1-1.0 Serum or plasma alkaline phosphatase measurement (enzymatic activity/volume) 48 U/L 40-136 Serum or plasma aspartate aminotransferase measurement (enzymatic activity/ volume) 15 U/L 5-34 Serum or plasma alanine aminotransferase measurement (enzymatic activity/volume ) 12 U/L 0-55 Serum or plasma protein measurement (mass/volume) 7.2 g/dL 6.4-8.2 Serum or plasma albumin measurement (mass/volume) 4.4 g/dL 3.2-4.5 Serum or plasma amylase measurement (enzymatic activity/volume) - 11/08/16 00: 40 Serum or plasma amylase measurement (enzymatic activity/volume) 54 U /L 25-125 Lipase - 11/08/16 00:40 Lipase 32 U/L 8-78 Encounters ACCT No. Visit Date/Time Discharge Status Pt. Type Provider Facility Loc./Unit Complaint [id number] 11/08/2016 00:20:00 11/08/2016 02:14:00 DIS Emergency NIURKA DOKRISTA [facility] ER ABD PAIN,RT SIDE,CAN'T URINATE [id number] 09/12/2015 19:59:00 09/12/2015 21:16:00 DIS Emergency MELISSA CENTENO APRN [facility] ER BLOOD IN URINE/NAUSEA/R FLANK PAIN [id number] 01/17/2015 10:37:00 01/17/2015 23:59:59 CLS Outpatient JOAQUIN DOUGLASS MD [facility] RAD ABD CT ABD [id number] 01/11/2015 21:50:00 01/12/2015 01:02:00 DIS Emergency NIURKA DOKRISTA [facility] ER KIDNEY PAIN [id number] 08/10/2014 11:12:00 08/11/2014 13:30:00 DIS Outpatient KARMA DUEÑAS MD [facility] CHRONIC PELVIC PAIN; ENDOMETRIOSIS [id number] 08/04/2014 05:45:00 08/04/2014 23:59:59 CLS Outpatient KARMA DUEÑAS MD [facility] PREOP CHRONIC PELVIC PAIN; ENDOMETRIOSIS [id number] 07/29/2014 12:00:00 07/29/2014 23:59:59 CLS Outpatient KARMA DUEÑAS MD [facility] LABNPT MILD OR UNSPECIFIED PRE-CLAMPSIA [id number] 06/28/2014 14:54:00 06/30/2014 16:45:00 DIS Inpatient KARMA DUEÑAS MD [facility] LDRP PREECLAMPSIA,C- SECTION [id number] 06/23/2014 09:41:00 06/23/2014 23:59:59 CLS Outpatient KARMA DUEÑAS MD [facility] LABNPT ABNORMAL FINDING ON SCREENING [id number] 06/17/2014 10:46:00 06/17/2014 23:59:59 CLS Outpatient KARMA DUEÑAS MD [facility] LABNPT MILD OR UNSPECIFIED PRE-CLAMPSIA [id number] 06/14/2014 15:39:00 06/14/2014 23:59:59 CLS Outpatient KARMA DUEÑAS MD [facility] LABNPT MILD OR UNSPECIFIED PRE-ECLAMPSIA [id number] 06/09/2014 12:30:00 06/09/2014 23:59:59 CLS Outpatient KARMA DUEÑAS MD [facility] LABT - Abnormal finding on screening [id number] 08/25/2013 09:27:00 08/25/2013 12:10:00 DIS Emergency SUSANNA ISSA MD [facility] ER RIGHT FLANK PAIN [id number] 11/11/2012 10:40:00 11/11/2012 16:18:00 DIS Outpatient KARMA DUEÑAS MD [facility] SDC CHRONIC PELVIC PAIN [id number] 11/06/2012 09:03:00 11/06/2012 23:59:59 CLS Outpatient KARMA DUEÑAS MD [facility] PREOP CHRONIC PELVIC PAIN [id number] 09/29/2012 11:56:00 09/29/2012 23:59:59 CLS Outpatient JOAQUIN DOUGLASS MD [facility] RAD PELVIC PAIN, ENDOMETRIOSIS [id number] 09/21/2012 19:20:00 09/22/2012 00:33:00 DIS Emergency SUSANNA ISSA MD [facility] ER ABD,SIDE,AND BACK PAIN [id number] 07/04/2012 14:24:00 07/04/2012 17:46:00 DIS Emergency MICHELLE BROOKS MD [facility] ER KIDNEY STONE [id number] 08/10/2014 11:12:00 Document Registration [id number] 08/10/2014 11:12:00 Document Registration [id number] 05/13/2014 11:50:00 Document Registration [id number] 10/21/2011 09:51:00 Document Registration [id number] 08/28/2011 10:21:00 Document Registration [id number] 04/04/2011 08:53:00 Document Registration [id number] 02/25/2011 13:02:00 Document Registration [email or web address] 08/10/2014 11:12:46 ACT Document Registration
--- NOTE | 2017-11-24 15:32 | ED Lower Extremity ---
General Chief Complaint: Lower Extremity Stated Complaint: NUMB FEET;LEFT FOOT SWOLLEN Nursing Triage Note: Pt reports waking yesterday and having inability to bear weight on bilat legs causing her to have multiple falls. Pt reports she is unable to move L foot and R foot has minimal movement. Pt reports "numb" feeling in bilat feet yesterday and now reports pain in L calf. Pt gait unsteady while ambulating to treatment room. Nursing Sepsis Screen: No Definite Risk Source: patient History of Present Illness Date Seen by Provider: Nov 24, 2017 Time Seen by Provider: 15:05 Initial Comments PT ARRIVES VIA POV FROM HOME STATES SHE HAS HAD LEFT ANKLE PAIN AND SWELLING SINCE WAKING YESTERDAY MORNING ALSO STATES THAT THE DISTAL ASPECT OF HER LEFT FOOT FEELS NUMB, AND HER LEFT HEEL FEELS A LITTLE TINGLY STATES SHE CANNOT FLEX OR EXTEND LEFT FOOT STATES SHE GOT OUT OF BED YESTERDAY MORNING AND WHEN SHE PUT HER LEFT FOOT DOWN ON THE FLOOR, SHE FELL, BECAUSE HER FOOT WAS NUMB AND HER ANKLE HURT TODAY HER LEFT CALF HURTS HAS FALLEN A COUPLE OF TIMES DUE TO LEFT ANKLE HURTING AND FOOT BEING NUMB--HAS BRUISE ON LEFT FOREARM, BUT NO ACTUAL BONY PAIN TO LEFT ARM HAS NOT HIT HER HEAD NO NECK OR BACK PAIN NO PRIOR PROBLEMS WITH HER FOOT OR ANKLE PT DOES NOT KNOW IF SHE INJURED HER LEFT FOOT/ANKLE OR NOT STATES SHE SLEEP WALKS, AND HAS BEEN DOING IT ALOT MORE LATELY STATES SHE WAS SLEEPWALKING ON FRIDAY NIGHT, CALLED HER PARENTS AND DOES NOT REMEMBER IT, AFTER LOCKING HERSELF OUTSIDE OF HER HOUSE, WHICH SHE ALSO DOES NOT REMEMBER PT STATES SHE HAD SOME MILD NUMBNESS TO HER RIGHT 5TH TOE, ONLY WHEN SHE WORE A SHOE, BUT THAT WENT AWAY SOON SHE TOOK HER SHOE OFF NO PAIN OR OTHER NUMBNESS, TINGLING OR PROBLEMS WALKING/BEARING WEIGHT/FLEXING AND EXTENDING RIGHT FOOT OTHERWISE HAS NO SYMPTOMS AT ALL ON THE RIGHT NO HEADACHE NO ARM INVOLVEMENT NO VISION CHANGES Allergies and Home Medications Allergies Coded Allergies: cephalexin (Verified Allergy, Unknown, 07/31/06) metoclopramide (Verified Allergy, Unknown, MAKES FEEL OUT OF HEAD, 09/23/06 ) penicillin G (Verified Allergy, Unknown, 07/31/06) Home Medications Alprazolam 1 Mg Tablet, 1 TAB PO TID PRN for ANXIETY, (Reported) Ketorolac Tromethamine 10 Mg Tablet, 10 MG PO Q6H Prescribed by: KRISTA BAH on 11/08/16 020 Ondansetron 4 Mg Tab.rapdis, 4 MG PO Q4H Prescribed by: KRISTA BAH on 11/08/16 020 Tramadol HCl 50 Mg Tablet, 50 MG PO Q4H Prescribed by: KRISTA BAH on 11/24/17 1810 Patient Home Medication List Home Medication List Reviewed: Yes Review of Systems Constitutional: no symptoms reported EENTM: no symptoms reported Respiratory: no symptoms reported Cardiovascular: no symptoms reported Gastrointestinal: no symptoms reported Genitourinary: no symptoms reported : No Control/STD Prophylaxis: Other (HYST/BSO) Musculoskeletal: see HPI Skin: see HPI Psychiatric/Neurological: See HPI Past Ehduvlt-Clbrek-Bfmjtk Hx Patient Social History Alcohol Use: Denies Use Recreational Drug Use: No Smoking Status: Current Everyday Smoker (1/2 -1 PPD, NOW LESS THAN 1/2 PPD) Type Used: Cigarettes Recent Foreign Travel: No Contact w/Someone Who Travel: No Recent Infectious Disease Expo: No Recent Hopitalizations: No Immunizations Up To Date Tetanus Booster (TDap): More than 5yrs PED Vaccines UTD: Yes Seasonal Allergies Seasonal Allergies: No Past Medical History Surgeries: Yes (LAPAROSCOPY WITH LYSIS OF ENDOMETRIOSIS; HYST/BSO; KIDNEY STONES/BASKET RETRIEVAL ) Appendectomy, Section, Gallbladder, Hysterectomy, Oophorectomy, Renal Respiratory: No Cardiac: No Neurological: No Reproductive Disorders: Yes (ENDOMETRIOSIS) Female Reproductive Disorders: Menstrual Problems, Endometriosis, 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 Sexually Transmitted Disease: No HIV/AIDS: No Genitourinary: Yes Kidney Stones Gastrointestinal: No Musculoskeletal: Yes Degenerate Disk Disease, Chronic Back Pain Endocrine: No HEENT: No Loss of Vision: Denies Hearing Impairment: Denies Cancer: No Psychosocial: Yes Anxiety Integumentary: No Blood Disorders: No Adverse Reaction/Blood Tranf: No Family Medical History Alcoholism PATERNAL GRANDPA ( AGE 54 YR) Arthritis 19 FATHER 19 MOTHER G8 BROTHER (GOUT) MATERNAL GRANDMA Cardiovascular disease MATERNAL GRANDMA Completed stroke PATERNAL GRANDMA (70 YR) FHx: suicide G8 BROTHER (SUICIDE AGE 21 YR) Hypertension 19 FATHER 19 MOTHER Osteoporosis PATERNAL GRANDMA Parkinson's disease 19 FATHER PATERNAL GRANDMA No Family History of: AIDS Abdominal aortic aneurysm [place]'s disease Alzheimer's disease Aphasia Asthma Cancer of mouth Cataracts Colon cancer Congenital disease Congenital heart disease Coronary thrombosis Cystic fibrosis Deafness or hearing loss Dementia Diabetes mellitus Drug abuse Dysphasia Fibrocystic disease of breast Gastroenteritis Glaucoma Headache disorder Hypercholesterolemia Infertility Kidney disease Myocardial infarction Neoplasm Not obtainable due to adoption Prostate cancer Psychosocial problem Respiratory disorder Seizure disorder Severe allergy Thyroid disease Tuberculosis Visual disorder Physical Exam Vital Signs Vital Signs - First Documented 11/24/17 14:56 Temp 98.4 Pulse 78 Resp 18 B/P (MAP) 124/79 (94) O2 Delivery Room Air Capillary Refill : Less Than 3 Seconds Height, Weight, BMI Height: 5'5.00" Weight: 140lbs. oz. [id number]; BMI Method:Stated General Appearance: WD/WN, no apparent distress Hips: bilateral hip non-tender, bilateral hip normal inspection, bilateral hip normal range of motion, bilateral hip no evidence of injury Legs: right leg non-tender, right leg normal inspection; bilateral leg no evidence of injury Knees: right knee non-tender, right knee normal inspection; bilateral knee normal range of motion, bilateral knee no evidence of injury Ankles: right ankle non-tender, right ankle normal inspection, right ankle normal range of motion, right ankle no evidence of injury; left ankle limited range of motion, left ankle pain, left ankle soft tissue tenderness, left ankle swelling, left ankle other (MILD SWELLING AROUND LATERAL MALLEOLUS, GENERALIZED TENDERNESS TO LEFT ANKLE. DECREASED SENSATION TO MID AND DISTAL FOOT. LIMITED ROM OF FOOT. DISTAL VASCULAR INTACT. ) Feet: right foot non-tender, right foot normal inspection, right foot normal range of motion, right foot no evidence of injury; bilateral foot other ( ABOVE) Neurologic/Psychiatric: cooler tender II-XII nml as tested, alert, oriented x 3, other ( ANXIOUS) Skin: normal color, warm/dry, ecchymosis (MILD BRUISE TO LEFT FOREARM. ) Progress/Results/Core Measures Results/Orders My Orders Orders - KRISTA BAH DO Ekg Tracing (11/24/17 15:04) Tibia/Fibula, Left, 2 Views (11/24/17 15:18) Foot, Left, 3 Views (11/24/17 15:18) Ct Extremity Lower Left Wo (11/24/17 16:14) Ketorolac Injection (Toradol Injection) (9/17/18 16:18) Anil Bandage (11/24/17 18:03) Crutches (11/24/17 18:03) Steplite (11/24/17 18:03) Vital Signs/I&O 11/24/17 14:56 Temp 98.4 Pulse 78 Resp 18 B/P (MAP) 124/79 (94) O2 Delivery Room Air Blood Pressure Mean: 94 Progress Progress Note : Progress Note UNEVENTFUL ER STAY PT ABLE TO AMBULATE WITH CRUTCHES, WEARING A BOOT, AT DISMISSAL 1930--PHARMACY CALLED, PT JUST GOT 30 DAY SUPPLY OF HYDROCODONE FROM DR. TSAI 2 WEEKS AGO, PT ALSO GOT RX FOR XANAX. ADVISED PHARMACIST TO DESTROY THE TRAMADOL RX AND PT CAN TAKE HER HYDROCODONE FOR PAIN. GETS 30 DAY SUPPLY OF HYDROCODONE EVERY MONTH--PT DID NOT INFORM ME OF THIS OR WHAT CHRONIC PAIN ISSUES SHE HAS ( CHRONIC BACK PAIN, PER OLD CHART) Diagnostic Imaging Comments XRAYS LEFT FOOT --NO ACUTE PROCESS XRAYS LEFT TIB-FIB--SMALL AVULSION OF DISTAL FIBULA, SOFT TISSUE SWELLING PER RADIOLOGIST REPORTS AT 1613 CT LEFT LOWER EXTREMITY--AVULSION FRACTURE OFF DISTAL END OF FIBULA, SOFT TISSUE SWELLING--PER RADIOLOGIST REPORT @ 1803 Reviewed: Reviewed by Me Departure Impression Primary Impression: Closed avulsion fracture of distal end of left fibula Additional Impression: Paresthesia of left foot Disposition: 01 HOME, SELF-CARE Condition: Stable Departure-Patient Inst. Referrals: BETTINA AMBRIZ CHAD C MD (PCP/Family) Primary Care Physician Patient Instructions: Ankle Fracture (DC), Paresthesias (DC) Add. Discharge Instructions: ICE TO AREA AT 20 MINUTE INTERVALS ANIL WRAP, WALKING BOOT ANd CRUTCHES AT ALL TIMES ELEVATE LEFT FOOT MUCH POSSIBLE FOLLOW UP WITH DR AMBRIZ/ ORTHO 4 STATES THIS WEEK FOR FURTHER CARE All discharge instructions reviewed with patient and/or family. Voiced understanding. Scripts Tramadol HCl (Ultram) 50 Mg Tablet 50 MG PO Q4H, #20 TAB Prov: KRISTA BAH DO 11/24/17 KRISTA BAH DO Nov 24, 2017 15:32
--- NOTE | 2017-11-24 15:53 | Diagnostic Imaging Report ---
Indication: Swelling, pain and redness to the left lower extremity. Time of exam: 4:00 p.m. Frontal and lateral views of the left tibia and fibula were obtained. Alignment at the knee and ankle is normal. Ankle mortise is well maintained. Talar dome is smooth. There are some osseous densities adjacent to the distal fibula which may represent avulsion fracture fragments. Acuity is indeterminate. There is some mild soft tissue swelling laterally. No other fractures are seen. Impression: Probable avulsions arising from the distal fibula, age indeterminate. No other significant abnormality is seen. Dictated by: Dictated on workstation # [id number]
--- NOTE | 2017-11-24 15:54 | Diagnostic Imaging Report ---
INDICATION: Left foot pain and injury. TIME OF EXAM: 3:57 PM FINDINGS: Three views of the left foot were obtained. The metatarsals are intact. The phalanges appear intact. Midfoot and hindfoot are unremarkable. No fractures are seen. IMPRESSION: No acute bony abnormality is detected. Dictated by: Dictated on workstation # [id number]
[2017-11-24] MEDS ORDERED: KETOROLAC 60 MG/2 ML VIAL IM STA (16:18)
--- NOTE | 2017-11-24 18:00 | Diagnostic Imaging Report ---
PROCEDURE: CT left lower extremity without contrast. TECHNIQUE: Multiple contiguous axial images were obtained through the left lower extremity without the use of intravenous contrast. Sagittal and coronal reformations were then performed. INDICATION: Trauma to left ankle. Pain and swelling over the lateral malleolus. Unable to bear weight. FINDINGS: There is avulsion injury off the tip of the fibula along the talofibular ligament. There is approximately 3 mm of separation of the avulsion fragment from the fibular shaft. The ankle mortise shows good alignment. The talar plafond is smooth. The medial malleolus appears normal. No evidence of tibial fracture. The talocalcaneal joint appears normal. The calcaneocuboid and talonavicular joint are normal. IMPRESSION: 1. Soft tissue swelling over the lateral malleolus with small avulsion injury noted off the tip of the fibula. Dictated by: Dictated on workstation # [id number]
[2017-11-24] MEDS ORDERED: TRAM-42 PO (18:10)
[2017-11-24 18:50] VITALS: BP 127/88
== END 2017-11-24 18:50 | disposition home or self-care (01) ==
LOC: EDUNIT# 14:03 → ER 14:04
DX: S82.432A Displaced oblique fracture of shaft of left fibula, initial encounter for closed fracture (principal); R20.2 Paresthesia of skin; F41.9 Anxiety disorder, unspecified; F17.210 Nicotine dependence, cigarettes, uncomplicated; Z90.710 Acquired absence of both cervix and uterus; Z82.49 Family history of ischemic heart disease and other diseases of the circulatory system; Z98.890 Other specified postprocedural states; Z87.448 Personal history of other diseases of urinary system; Z87.442 Personal history of urinary calculi; Z88.0 Allergy status to penicillin; Z88.8 Allergy status to other drugs, medicaments and biological substances; Z88.1 Allergy status to other antibiotic agents; Z91.81 History of falling; W19.XXXA Unspecified fall, initial encounter
CPT/HCPCS: 73590; 73630; 73700; 96372

== ENCOUNTER → 2018-09-23 | Outpatient (CLI) | payer OTHER ==
[~2018-09-23] MED LIST changes: +TRAM-42 PO
[2018-09-23 10:12] LABS: BASOPHILS % (AUTO) 1 % (0-10); EOSINOPHILS % (AUTO) 1 % (0-10); HEMATOCRIT 39 % (35-52); HEMOGLOBIN 12.8 G/DL (11.5-16.0); LYMPHOCYTES # (AUTO) 1.4 X 10^3 (1.0-4.0); LYMPHOCYTES % (AUTO) 37 % (12-44); MEAN CORPUSCULAR HEMOGLOBIN 31 PG (25-34); MEAN CORPUSCULAR HGB CONC 33 G/DL (32-36); MEAN CORPUSCULAR VOLUME 93 FL (80-99); MEAN PLATELET VOLUME 10.2 FL (7.4-10.4); MONOCYTES # (AUTO) 0.3 X 10^3 (0.0-1.0); MONOCYTES % (AUTO) 7 % (0-12); NEUTROPHILS % (AUTO) 54 % (42-75); PLATELET COUNT 244 10^3/uL (130-400); RED CELL DISTRIBUTION WIDTH 12.2 % (10.0-14.5); WHITE BLOOD COUNT 3.6 10^3/uL (4.3-11.0)
[2018-09-23 10:32] LABS: ALANINE AMINOTRANSFERASE 11 U/L (0-55); ALBUMIN 4.3 GM/DL (3.2-4.5); ALKALINE PHOSPHATASE 40 U/L (40-136); BILIRUBIN,TOTAL 1.1 MG/DL (0.1-1.0); BUN/CREATININE RATIO 14; CALCIUM 9.6 MG/DL (8.5-10.1); CARBON DIOXIDE 27 MMOL/L (21-32); CHLORIDE 107 MMOL/L (98-107); CHOLESTEROL 236 MG/DL (< 200); CREATININE SERUM 0.79 MG/DL (0.60-1.30); GFR ESTIMATED > 60; GLUCOSE 96 MG/DL (70-105); HDL CHOLESTEROL 70 MG/DL (40-60); POTASSIUM 4.6 MMOL/L (3.6-5.0); SODIUM 140 MMOL/L (135-145); TOTAL PROTEIN 7.2 GM/DL (6.4-8.2); TRIGLYCERIDES 101 MG/DL (<150); VLDL CHOLESTEROL 20 MG/DL (5-40)
== END ==
LOC: LAB 09:52
PROVIDERS: ATTEND Family Medicine
DX: Z00.00 Encounter for general adult medical examination without abnormal findings (principal); Z13.220 Encounter for screening for lipoid disorders; Z87.442 Personal history of urinary calculi
CPT/HCPCS: 36415; 80053; 80061; 85025

== ENCOUNTER → 2018-10-16 | Outpatient (CLI) | payer OTHER ==
[2018-10-16 11:24] LABS: BILIRUBIN,URINE NEGATIVE (NEGATIVE); CLARITY,URINE CLEAR; COLOR,URINE YELLOW; GLUCOSE, URINE (UA) NEGATIVE (NEGATIVE); KETONES,URINE NEGATIVE (NEGATIVE); LEUKOCYTE ESTERASE ,URINE 1+ (NEGATIVE); NITRITE,URINE NEGATIVE (NEGATIVE); PH,URINE 5 (5-9); PROTEIN,URINE 1+ (NEGATIVE); UROBILINOGEN,URINE NORMAL (NORMAL)
[2018-10-16 11:41] LABS: RBC,URINE 25-50 /HPF
[2018-10-16 11:42] LABS: BACTERIA,URINE NEGATIVE /HPF; SQUAMOUS EPITHELIAL CELL,UR RARE /HPF; WBC,URINE RARE /HPF
== END ==
LOC: LAB 10:59
PROVIDERS: ATTEND Family Medicine
DX: R30.0 Dysuria (principal); R10.9 Unspecified abdominal pain
CPT/HCPCS: 81000

== ENCOUNTER → 2019-08-19 | Outpatient (CLI) | payer OTHER ==
[~2019-08-19] MED LIST changes: -TAMS0.4C98 PO; +TMSL.4C PO
== END ==
LOC: CARD 11:13
PROVIDERS: ATTEND Family Medicine
DX: I07.1 Rheumatic tricuspid insufficiency (principal); R01.1 Cardiac murmur, unspecified; R60.0 Localized edema
CPT/HCPCS: 93306